=== PATIENT | male | born 1940 | race Caucasian/White ===

== ENCOUNTER → 2016-03-16 | Outpatient (CLI) | payer MEDICARE, OTHER ==
[~2016-03-16] MED LIST: ARAVA20 MG PO; ASPIRIN CHILDRE81 M1 PO; BRILINTA90 M1 PO; CARVEDILOL3.125 MG PO; FOLIC ACID1 MG PO; IPRATROPIUM BROM3 M1 IH; METHOTREXATE 22.5 MG PO; NAPROSYN 500MG500 MG PO; NICODERM C21 MG/24 H TD; NITROGLYCERIN0.4 MG SL; OXYBUTYNIN5 MG PO; PANTOPRAZOLE SO40 MG PO; PLAVIX 75MG TAB75 MG PO; PREDNISONE 10MG10 MG PO; PREDNISONE 20MG20 MG PO; PREDNISONE 5MG.5 MG PO; REQUIP0.25 MG PO; SINGULAIR10 MG PO; SPIRONOLACTONE25 MG PO; TAMSULOSIN HYD0.4 M1 PO; TAMSULOSIN HYD0.4 MG PO; VITAMIN D31000 IU PO; VITAMIN D350000 UNIT PO; XARELTO15 MG PO; ZITHROMAX Z-PA250 M2 PO
--- NOTE | 2016-03-16 14:33 | RADIOLOGY REPORT PS360 ---
CT CHEST W/O CONTRAST HISTORY: Persistent cough, shortness of breath PERSISTENT COUGH TECHNIQUE: Helical acquisition obtainedwithout contrast. Axial, sagittal, and coronal reformatted images are generated and reviewed. COMPARISON: There is been a prior median sternotomy with CABG. There are few scattered small mediastinal lymph nodes. The largest is in the precarinal region measuring up to 9 mm in width slightly smaller than when compared to the previous exam. The heart size. No obvious pericardial effusion. There are moderate centrilobular and paraseptal emphysematous changes. There are scattered multiple noncalcified pulmonary nodular opacities are mostly peripheral in both upper and lower lobes bilaterally. This is not readily apparent on the previous exam. These could be postinflammatory or neoplastic. They're mostly 5 mm or less. There are chronic changes in the left lower lobe with fibrocalcific changes in the left lung base laterally with volume loss and pleural calcification. This is unchanged. Some mild subpleural thickening the left lung base has developed since the previous study fibrotic changes are present in the left apex. No obvious pleural effusion. There is pleural thickening in the left lung base posteriorly adjacent to the pleural calcification no acute bony anomalies. Upper abdominal images show a small hiatal hernia. IMPRESSION: 1. 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 2. Scattered ill-defined pulmonary nodular opacities are noted bilaterally. These could be postinflammatory in nature. One however cannot with metastatic disease. Would recommend short-term follow-up in 4-6 weeks to check the stability or confirm resolution.
== END ==
LOC: RAD 12:35
DX: R05 Cough (principal)

== ENCOUNTER → 2016-03-29 | Outpatient (CLI) | payer MEDICARE, OTHER ==
[2016-03-29 10:35] LABS: BUN 23 mg/dL (7-18)
[2016-03-29 10:43] LABS: GFR (ESTIMATED) 94 ML/MIN (>60)
--- NOTE | 2016-03-29 15:59 | RADIOLOGY REPORT PS360 ---
Procedure: Cardiac MUGA scan to evaluate left ventricular systolic function. Procedure: Patient received total of 26.5 mCi of technetium 99 sodium pertechnetate, resting MUGA scan was performed in the standard view. Findings The resting MIBI scan showed an ejection fraction of 29%, with marked hypokinesis involving the anteroapical, apex and intraventricular septal wall. Conclusion Resting MUGA scan showed an ejection fraction of 29% with segmental wall motion abnormalities as described above.
== END ==
LOC: RAD 07:10
PROVIDERS: Internal Medicine
DX: I25.10 Atherosclerotic heart disease of native coronary artery without angina pectoris (principal); I42.9 Cardiomyopathy, unspecified; I50.9 Heart failure, unspecified; E78.5 Hyperlipidemia, unspecified; I10 Essential (primary) hypertension

== ENCOUNTER → 2016-06-25 | Outpatient (CLI) | payer MEDICARE, OTHER ==
[2016-06-25 10:17] LABS: BILIRUBIN, INDIRECT 0.19 mg/dL (0-0.9)
== END ==
LOC: LAB 08:22
PROVIDERS: Internal Medicine Cardiovascular Disease
DX: I10 Essential (primary) hypertension (principal); E78.5 Hyperlipidemia, unspecified

== ENCOUNTER 2016-12-07 14:49 | Emergency (ER) | payer MEDICARE, OTHER ==
[~2016-12-07] VITALS: Ht 175.3 cm; Wt 68.0 kg
--- NOTE | 2016-12-07 15:36 | Urgent Treatment Center Report ---
History of Present Issue Date/Time Seen by Provider 12/07/16 1528 Visit Reason Pt arrived:Walked Presenting Problem:PT STATES HE FELL 2 NIGHTS AGO AROUND 930 AND TRIED TO CATCH HIMSELF. INJURIED HIS LT WRIST AND RT HUMERUS Location if Accident: Onset of symptoms date/time:/ or onset unknown for:MEDICAL HX UNKNOWN Have you (or family members/close friends) recently traveled outside the [place]? N If Yes, where/when: Have you had exposure to infectious disease within the past month? TB? Other? Specify: State that he was outside about 2 nights ago when he tripped over a rug and as he tried to catch himself he landed on his left wrist area and stuck his right upper arm on the ground. States that ever since the fall he has been having pain in his left wrist and right upper arm State that he got worried that he may have broken something so he came in to be seen ALLERGIES Coded Allergies: morphine (04/05/16) Home Medications Active Scripts Prednisone (Prednisone 10MG) 10 MG PO DAILY #27 TAB Prov: 06/07/16 Reported Medications Cholecalciferol (Vitamin D3) (Vitamin D3) 50,000 UNIT PO TWICE WEEKLY Pantoprazole Sodium (Pantoprazole 40MG) 40 MG PO DAILY TAMSULOSIN HCL (Tamsulosin 0.4MG) 0.4 MG PO QHS ROPINIROLE HCL (Requip 0.25MG) 0.5 MG PO QHS Carvedilol (Carvedilol 3.125MG) 3.125 MG PO BID NITROGLYCERIN (Nitrostat) 0.4 MG SL [id number] PRN CHEST PAIN ALBUTEROL-IPRATROPIUM (Iprat-Albut 0.5-3(2.5) MG/3 Ml) 3 ML IH Q6PRN PRN BREATHING Aspirin 81 MG PO DAILY OXYBUTYNIN CHLORIDE (Oxybutynin 5MG Tab) 5 MG PO DAILY Leflunomide (Arava) 20 MG PO DAILY CLOPIDOGREL BISULFATE (PLAVIX) 75 MG PO DAILY History Medical History General CAD? No Angina: Yes MA: Yes Hypertension? Yes Hyperlipidemia? Yes CHF? Yes DVT? No PE? No COPD? No Asthma? No Anemia? No GERD? Yes Gastric ulcers? No GI Bleed? No Hernia? No Thyroid Problems? No Hypothyroidism? No CVA? No Seizures? No Diabetes? No UTI? Yes Stones? No BPH? No GB Disease: No Nephritic Syndrome? No Asplenia? No Hepatitis? No Sickle Cell Disease? No Arthritis? Yes Migraines? No Cataracts? No Glaucoma? No MRSA? No HIV? No TB? No Anxiety? No Depression? No Cancer? No More? No Immunization HX DT/Tetanus NOT SURE Flu 2015- Flu Season Pneumonia Received In Past Surgical Hx Previous Surgery?Y Appendix Plastic Coronary Artery Bypass LIFE VEST OPEN HEART Family History Family HX Diabetes No CAD No Hypertension No Hyperlipidemia No Cancer No TB No Social History Smoking Hx Smoker: Current Every Day Smoker Tobacco: Yes Type Cigarettes Packs/day < 1 Pack Alcohol Alcohol: No Review of Systems All Other Systems Reviewed and Negative Comment Pain in right upper arm and left wrist after falling 2 nights ago at home Physical Exam Vital Signs Vital Signs Date Time Temp Pulse Resp B/P Pulse O2 O2 Flow FiO2 Ox Delivery Rate 12/07 1503 97.8 97 20 108/63 96 General Appearance normal appearance, WD/WN, no apparent distress Respiratory Status Yes: trachea midline, chest symmetrical, non tender chest. No: respiratory distress. 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 No Results/Orders Orders Procedure Date/time Status UTC STABILIZE JOINT/AREA 12/07 1601 Active WRIST-3 VIEWS-LT 12/07 1502 Active HUMERUS-RT 12/07 1502 Active XRAY/CT/US XRAY/CT/US XRAY upper arm, wrist XR interpretation by reviewed by me Xray Results no fracture seen Comment Discussed with Dr Cohen Departure Departure Time of Disposition 160 Disposition DC Home or Self Care(routine) Clinical Impression Primary Impression: Wrist pain Qualifiers: Laterality: left Qualified Code: M25.532 - Pain in left wrist Condition STABLE Referrals PARVEEN VILLA (Family): 2 Days-Call Office if pain persists Patient Instructions How To Perform RICE (Rest, Ice, Compress, Elevate) Additional Instructions *RICE, Rest the extremity, Ice 15-20 minutes 3-4 times daily, Compress- wear the surendra wrap as discussed as much as possible to help reduce swelling and pain, Elevate the extremity when at rest *Surendra wrap is for support and help control swelling, use it except in the shower. Be sure that is not to tight but not to loose either *Elevate when resting *Ibuprofen 600-800mg every 6-8 hours as needed for pain an inflammation. If need something more can take Tylenol in between doses of Ibuprofen to help Immediately follow up for new or worsening of symptoms, or no noticeable improvement over the next 3-5 days Discharge Counseling Counseled pt/family regarding diagnosis, test results, medications/RX, home care, follow up needs at 1616
[2016-12-07 16:11] VITALS: BP 108/63
--- NOTE | 2016-12-07 16:35 | RADIOLOGY REPORT PS360 ---
WRIST-3 VIEWS-LT HISTORY: Pain following injury FELL 2 DAYS AGO ORDERING PHYSICIAN: MITALI WHITNEY APRN PATIENT AGE: 76 years COMPARISON: None FINDINGS: No fracture or dislocation. No lytic or blastic change. There is normal mineralization. The joint spaces are well-preserved. No significant degenerative/arthritic changes. No erosive changes evident. IMPRESSION: Negative, no acute finding
== END 2016-12-07 16:12 | disposition home or self-care (01) ==
LOC: UTC 14:49
PROC: 2W3DX1Z Immobilization of Left Lower Arm using Splint (ICD-10-PCS; principal; 2016-12-07)
DX: M25.532 Pain in left wrist (principal); M25.521 Pain in right elbow; Z79.82 Long term (current) use of aspirin; Z88.6 Allergy status to analgesic agent; W01.0XXA Fall on same level from slipping, tripping and stumbling without subsequent striking against object, initial encounter; Y92.009 Unspecified place in unspecified non-institutional (private) residence as the place of occurrence of the external cause; I10 Essential (primary) hypertension; K21.9 Gastro-esophageal reflux disease without esophagitis; F17.210 Nicotine dependence, cigarettes, uncomplicated
CPT/HCPCS: 29125; G0463